=== PATIENT | female | born 1950 | race Caucasian/White ===

== ENCOUNTER 2020-04-06 13:04 | Inpatient (IN) ==
[2020-04-06] MEDS ORDERED: SODIUM CHLORIDE 0.9% 500 ML IV STA (13:45)
[2020-04-06 13:48] LABS: Basophils # 0.1 10*3/uL (0.0-0.2); Basophils % 0.6 % (0.0-0.8); Eosinophils # 0.1 10*3/uL (0.0-0.87); Eosinophils % 0.8 % (0.00-10.9); Hematocrit 33.2 VOL% (35.7-47.0); Hemoglobin 10.2 GM/DL (12.0-16.0); Immature Granulocytes % 0.5 %; Immature Granulocytes Absolute 0.07 #; Lymphocytes # 1.4 10*3/uL (1.4-4.0); Lymphocytes % 10.2 % (21.3-54.2); Mean Corpuscular HGB Conc 30.7 GM/DL (32-36); Mean Corpuscular Volume 90.5 FL (87-102); Mean Platelet Volume 9.2 FL (9.6-12.0); Monocytes % 6.5 % (1.7-12.7); Neutrophils % 81.4 % (38.7-73.9); Platelet Count 501 T/CUMM (130-400); Red Blood Count 3.67 MC/CUMM (3.8-5.5); White Blood Count 14.1 T/CUMM (4-12)
[2020-04-06 13:56] LABS: PT Patient Result 10.9 SECS (9.8-11.9)
[2020-04-06 14:18] LABS: Apearance,Urine CLOUDY (Clear); Bacteria,Urine Occasional /HPF (Few); Bilirubin,Urine Negative (Negative); Blood, Urine Negative (Negative); Glucose,Urine (UA) Negative (Negative); Ketones,Urine Negative (Negative); Nitrite,Urine Negative (Negative); Protein,Urine 30 MG/DL; Urine Color Yellow (Yellow); Urine Urobilinogen < 2.0 EU/DL (0.2-1.0); WBC,Urine 921 /HPF (0-6)
[2020-04-06 14:22] LABS: Alanine Aminotransferase 53 U/L (13-56); Albumin 2.7 G/DL (3.4-5.0); Alkaline Phosphatase 161 U/L (45-117); Aspartate Amino Transferase 71 U/L (0-37); Blood Urea Nitrogen 19 MG/DL (7-18); Calcium 8.6 MG/DL (8.5-10.1); Estimated Glom Filtration Rate 39 ML/MIN; Ferritin 365.1 ng/ml (8-252); Glucose 161 MG/DL (74-106); Total Protein 7.2 G/DL (6.4-8.3); Troponin I < 0.015 NG/ML (0.00-0.045)
[2020-04-06 14:35] LABS: Free T4 (Free Thyroxine) 1.34 NG/DL (0.76-1.46); Thyroid Stimulating Hormone 0.968 uIU/ml (0.358-3.74)
[2020-04-06] MEDS ORDERED: MEROPENEM 2,000 MG in SODIUM CHLORIDE 0.9% 100 ML IV ONE (14:35)
[2020-04-06] MEDS ORDERED: MEROPENEM 500 MG VIAL ONE (15:00)
[2020-04-06] MEDS ORDERED: SODIUM CHLORIDE 0.9% 1,700 ML IV ONE (15:19)
[2020-04-06 15:32] LABS: Barbiturates Screen,Urine Negative (Negative); Benzodiazepines Screen,Urine Negative (Negative); Cannabinoid Screen,Urine Negative (Negative); Opiate Screen,Urine Positive (Negative); Phencyclidine Screen,Urine Negative (Negative)
[2020-04-06] MEDS ORDERED: MAGNESIUM SULF RIDER 2 GM in PREMIX 1 EACH IV PRN ×2 (15:37→15:39)
[2020-04-06] MEDS ORDERED: GLUCAGON 1 MG VIAL IM PRN (15:37)
[2020-04-06] MEDS ORDERED: DEXTROSE 10% 250 ML BAG IV PRN (15:37)
[2020-04-06] MEDS ORDERED: MAGNESIUM SULF RIDER 4 GM in PREMIX 1 EACH IV PRN ×2 (15:37→15:39)
[2020-04-06] MEDS ORDERED: POTASSIUM CHLORIDE RIDER 10 MEQ in PREMIX 1 EACH IV PRN (15:39)
[2020-04-06] MEDS: INSULIN REGULAR 100 UNIT/ML SUBCUT SCH ×2 (16:36→21:05)
[2020-04-06 16:43] LABS: ABG Oxygen Saturation 94.9 % (95-100); ABG PCO2 46.6 MM HG (35-48); ABG PH 7.393 (7.35-7.45)
[2020-04-06] MEDS: HEPARIN 5,000 UNIT/1 ML VIAL SUBCUT SCH ×2 (17:03→23:56)
[2020-04-06] MEDS: SEVELAMER CARBONATE 800 MG TABLET PO SCH (19:01)
[2020-04-06] MEDS ORDERED: glipiZIDE 5 MG TABLET PO SCH (21:00)
[2020-04-06] MEDS ORDERED: MIDODRINE 5 MG TABLET PO SCH (21:00)
[2020-04-06] MEDS: buPROPion 75 MG TABLET PO SCH (21:02)
[2020-04-06] MEDS: DILTIAZEM 30 MG TABLET PO SCH (21:02)
[2020-04-06] MEDS: GABAPENTIN 300 MG CAPSULE PO SCH (21:03)
[2020-04-06] MEDS: MIDODRINE 5 MG TABLET PO SCH (21:03)
[2020-04-06] MEDS: MEROPENEM 500 MG in SODIUM CHLORIDE 0.9% 100 ML IV SCH (23:56)
[2020-04-07 05:18] LABS: Basophils % 0.5 % (0.0-0.8); Eosinophils # 0.2 10*3/uL (0.0-0.87); Eosinophils % 2.9 % (0.00-10.9); Hematocrit 29.1 VOL% (35.7-47.0); Hemoglobin 9.2 GM/DL (12.0-16.0); Immature Granulocytes % 0.4 %; Immature Granulocytes Absolute 0.03 #; Lymphocytes # 1.4 10*3/uL (1.4-4.0); Lymphocytes % 17.8 % (21.3-54.2); Mean Corpuscular HGB Conc 31.6 GM/DL (32-36); Mean Corpuscular Volume 89.5 FL (87-102); Mean Platelet Volume 9.4 FL (9.6-12.0); Monocytes % 7.4 % (1.7-12.7); Platelet Count 394 T/CUMM (130-400); Red Blood Count 3.25 MC/CUMM (3.8-5.5); Red Cell Distribution Width 14.8 % (9.3-17.3); White Blood Count 7.9 T/CUMM (4-12)
[2020-04-07 05:55] LABS: Albumin 2.2 G/DL (3.4-5.0); Bilirubin,Total 0.6 MG/DL (0.2-1.0); Calcium 8.2 MG/DL (8.5-10.1); Osmolality,Calculated 273.7 MOS/KG (273-304); Total Protein 6.3 G/DL (6.4-8.3)
[2020-04-07] MEDS: MEROPENEM 500 MG in SODIUM CHLORIDE 0.9% 100 ML IV SCH (07:26)
[2020-04-07] MEDS: SEVELAMER CARBONATE 800 MG TABLET PO SCH ×3 (08:56→16:47)
[2020-04-07] MEDS: PANTOPRAZOLE 40 MG TABLET PO SCH (08:56)
[2020-04-07] MEDS: SERTRALINE 50 MG TABLET PO SCH (08:56)
[2020-04-07] MEDS: MIDODRINE 5 MG TABLET PO SCH ×2 (08:57→15:39)
[2020-04-07] MEDS: GABAPENTIN 300 MG CAPSULE PO SCH ×2 (08:57→21:44)
[2020-04-07] MEDS: DILTIAZEM 30 MG TABLET PO SCH (08:57)
[2020-04-07] MEDS: buPROPion 75 MG TABLET PO SCH ×2 (08:58→21:46)
[2020-04-07] MEDS: ATORVASTATIN 10 MG TABLET PO SCH (08:58)
[2020-04-07] MEDS: LEVOTHYROXINE 75 MCG TABLET PO SCH (08:58)
[2020-04-07] MEDS: HEPARIN 5,000 UNIT/1 ML VIAL SUBCUT SCH ×2 (09:08→15:39)
[2020-04-07] MEDS: INSULIN REGULAR 100 UNIT/ML SUBCUT SCH ×3 (09:20→16:48)
[2020-04-07] MEDS ORDERED: cefTRIAXone 1,000 MG in SYRINGE 1 EACH IV SCH (14:00)
[2020-04-07] MEDS: MULTIVITAMIN (BEROCCA) TABLET PO SCH (15:39)
[2020-04-07] MEDS: FLUDROCORTISONE 0.1 MG TABLET PO SCH ×2 (15:39→21:45)
[2020-04-07] MEDS: POLYETHYLENE GLYCOL POWDER 17 GM PACK PO SCH (15:39)
[2020-04-07] MEDS: DOCUSATE SODIUM 100 MG CAPSULE PO SCH (21:46)
[2020-04-08] MEDS: HEPARIN 5,000 UNIT/1 ML VIAL SUBCUT SCH ×2 (00:30→10:16)
[2020-04-08] MEDS: INSULIN REGULAR 100 UNIT/ML SUBCUT SCH ×3 (00:30→12:43)
[2020-04-08 03:05] LABS: Basophils # 0.1 10*3/uL (0.0-0.2); Basophils % 0.8 % (0.0-0.8); Eosinophils # 0.3 10*3/uL (0.0-0.87); Hematocrit 28.8 VOL% (35.7-47.0); Hemoglobin 8.9 GM/DL (12.0-16.0); Immature Granulocytes % 0.4 %; Immature Granulocytes Absolute 0.03 #; Lymphocytes % 26.1 % (21.3-54.2); Mean Corpuscular HGB Conc 30.9 GM/DL (32-36); Mean Corpuscular Volume 89.7 FL (87-102); Mean Platelet Volume 9.8 FL (9.6-12.0); Monocytes % 10.3 % (1.7-12.7); Neutrophils % 58.4 % (38.7-73.9); Platelet Count 420 T/CUMM (130-400); Red Blood Count 3.21 MC/CUMM (3.8-5.5); Red Cell Distribution Width 14.9 % (9.3-17.3); White Blood Count 7.5 T/CUMM (4-12)
[2020-04-08 03:20] LABS: Alanine Aminotransferase 37 U/L (13-56); Albumin 2.3 G/DL (3.4-5.0); Alkaline Phosphatase 134 U/L (45-117); Aspartate Amino Transferase 29 U/L (0-37); Bilirubin,Total < 0.39 MG/DL (0.2-1.0); Blood Urea Nitrogen 9 MG/DL (7-18); Calcium 8.3 MG/DL (8.5-10.1); Estimated Glom Filtration Rate 71 ML/MIN; Glucose 98 MG/DL (74-106); Osmolality,Calculated 275.5 MOS/KG (273-304); Total Protein 6.3 G/DL (6.4-8.3)
[2020-04-08 03:23] LABS: Risk Ratio 2.08; VLDL CHOLESTEROL 20.2 MG/DL
[2020-04-08] MEDS: MIDODRINE 5 MG TABLET PO SCH (08:09)
[2020-04-08] MEDS ORDERED: CHOLECALCIFEROL 1,000 UNIT TABLET PO SCH (09:00)
[2020-04-08] MEDS ORDERED: MIDODRINE 5 MG TABLET PO SCH (09:00)
[2020-04-08] MEDS: LEVOTHYROXINE 75 MCG TABLET PO SCH (10:15)
[2020-04-08] MEDS: buPROPion 75 MG TABLET PO SCH (10:15)
[2020-04-08] MEDS: ATORVASTATIN 10 MG TABLET PO SCH (10:15)
[2020-04-08] MEDS: GABAPENTIN 300 MG CAPSULE PO SCH (10:15)
[2020-04-08] MEDS: DOCUSATE SODIUM 100 MG CAPSULE PO SCH (10:15)
[2020-04-08] MEDS: SERTRALINE 50 MG TABLET PO SCH (10:16)
[2020-04-08] MEDS: FLUDROCORTISONE 0.1 MG TABLET PO SCH (10:16)
[2020-04-08] MEDS: SEVELAMER CARBONATE 800 MG TABLET PO SCH ×2 (10:16→12:44)
[2020-04-08] MEDS: PANTOPRAZOLE 40 MG TABLET PO SCH (10:16)
[2020-04-08] MEDS: MULTIVITAMIN (BEROCCA) TABLET PO SCH (10:16)
[2020-04-08] MEDS: POLYETHYLENE GLYCOL POWDER 17 GM PACK PO SCH (10:17)
[2020-04-08 11:52] VITALS: BP 114/63
== END 2020-04-08 13:52 | disposition home health service (06) | DRG 312 ==
LOC: N.ED 13:04 → N.EDINP 16:46 → N.4E 17:38
PROVIDERS: ADMIT Hospitalist; ATTEND Hospitalist

== ENCOUNTER 2021-01-12 16:48 | Observation (INO) ==
[2021-01-12] MEDS ORDERED: SODIUM CHLORIDE 0.9% 1,000 ML IV STA (17:24)
[2021-01-12 18:07] LABS: Basophils % 0.3 % (0.0-0.8); Eosinophils % 0.3 % (0.00-10.9); Hematocrit 34.2 VOL% (35.7-47.0); Hemoglobin 11.4 GM/DL (12.0-16.0); Immature Granulocytes % 0.3 %; Immature Granulocytes Absolute 0.02 #; Lymphocytes # 1.8 10*3/uL (1.4-4.0); Lymphocytes % 30.5 % (21.3-54.2); Mean Corpuscular HGB Conc 33.3 GM/DL (32-36); Mean Corpuscular Volume 91.4 FL (87-102); Mean Platelet Volume 9.7 FL (9.6-12.0); Monocytes % 11.6 % (1.7-12.7); Platelet Count 359 T/CUMM (130-400); Red Blood Count 3.74 MC/CUMM (3.8-5.5); Red Cell Distribution Width 14.1 % (9.3-17.3); White Blood Count 5.8 T/CUMM (4-12)
[2021-01-12 18:35] LABS: Bilirubin,Total 0.5 MG/DL (0.2-1.0); Calcium 9.4 MG/DL (8.5-10.1); Potassium 3.7 MMOL/L (3.5-5.1); Thyroid Stimulating Hormone 0.094 uIU/ml (0.358-3.74); Total Protein 7.8 G/DL (6.4-8.2)
[2021-01-12 19:07] LABS: Bacteria,Urine Occasional /HPF (Few); Bilirubin,Urine Negative (Negative); Blood, Urine Negative (Negative); Glucose,Urine (UA) >=500 mg/dL (Negative); Hyaline Casts,Urine 7 /LPF (0-3); Ketones,Urine 20 mg/dL (Negative); Mucus,Urine Occasional /LPF (Occasional); Nitrite,Urine Negative (Negative); Protein,Urine Negative; RBC,Urine 6 /HPF (0-4); Squamous Epithelial Cell,Urine Few /HPF (0-10); Urine Appearance Slightly Hazy (Clear); Urine Color Yellow (Yellow); Urine Specific Gravity 1.026 (1.001-1.035); Urine Urobilinogen < 2.0 EU/DL (0.2-1.0); WBC,Urine 17 /HPF (0-6)
[2021-01-12] MEDS ORDERED: ONDANSETRON 4 MG/2 ML VIAL IV PRN (19:48)
[2021-01-12] MEDS ORDERED: ACETAMINOPHEN 325 MG TABLET PO PRN (19:48)
[2021-01-12] MEDS ORDERED: BENZONATATE 100 MG CAPSULE PO PRN (19:52)
[2021-01-12] MEDS: DEXTROSE 5% NACL 0.9% 1,000 ML IV SCH (20:32)
[2021-01-12] MEDS: ENOXAPARIN 40 MG/0.4 ML SYRINGE SUBCUT SCH (22:23)
[2021-01-12] MEDS: BISACODYL 5 MG TABLET PO SCH (22:24)
[2021-01-12] MEDS: MIDODRINE 5 MG TABLET PO SCH (22:24)
[2021-01-12] MEDS: GABAPENTIN 300 MG CAPSULE PO SCH (22:24)
[2021-01-13 05:45] LABS: Basophils % 0.5 % (0.0-0.8); Eosinophils # 0.1 10*3/uL (0.0-0.87); Eosinophils % 1.4 % (0.00-10.9); Hematocrit 29.2 VOL% (35.7-47.0); Hemoglobin 9.5 GM/DL (12.0-16.0); Immature Granulocytes % 0.5 %; Immature Granulocytes Absolute 0.02 #; Lymphocytes # 1.2 10*3/uL (1.4-4.0); Mean Corpuscular HGB Conc 32.5 GM/DL (32-36); Mean Corpuscular Volume 94.2 FL (87-102); Mean Platelet Volume 9.8 FL (9.6-12.0); Neutrophils % 59.6 % (38.7-73.9); Platelet Count 285 T/CUMM (130-400); Red Cell Distribution Width 14.5 % (9.3-17.3); White Blood Count 4.3 T/CUMM (4-12)
[2021-01-13 06:03] LABS: Osmolality,Calculated 283.5 MOS/KG (273-304); Potassium 3.2 MMOL/L (3.5-5.1)
[2021-01-13] MEDS ORDERED: POTASSIUM CHLORIDE 20 MEQ/15 ML UDCUP PO ONE (06:45)
[2021-01-13] MEDS: PANTOPRAZOLE 40 MG TABLET PO SCH (09:30)
[2021-01-13] MEDS: ASPIRIN EC 81 MG TABLET PO SCH (09:30)
[2021-01-13] MEDS: MIDODRINE 5 MG TABLET PO SCH ×3 (09:30→20:49)
[2021-01-13] MEDS: ATORVASTATIN 10 MG TABLET PO SCH (09:30)
[2021-01-13] MEDS: SERTRALINE 50 MG TABLET PO SCH (09:30)
[2021-01-13] MEDS: GABAPENTIN 300 MG CAPSULE PO SCH ×2 (09:30→20:49)
[2021-01-13] MEDS: LEVOTHYROXINE 50 MCG TABLET PO SCH (09:30)
[2021-01-13] MEDS: VITAMIN E 400 UNIT CAPSULE PO SCH (09:30)
[2021-01-13] MEDS: DEXTROSE 5% NACL 0.9% 1,000 ML IV SCH ×2 (14:52→21:52)
[2021-01-13] MEDS: BISACODYL 5 MG TABLET PO SCH (20:49)
[2021-01-13] MEDS: ENOXAPARIN 40 MG/0.4 ML SYRINGE SUBCUT SCH (20:53)
[2021-01-14] MEDS: DEXTROSE 5% NACL 0.9% 1,000 ML IV SCH (05:52)
[2021-01-14 07:31] LABS: Albumin 2.8 G/DL (3.4-5.0); Bilirubin,Total 1.1 MG/DL (0.2-1.0); Calcium 7.7 MG/DL (8.5-10.1); Osmolality,Calculated 283.3 MOS/KG (273-304); Potassium 3.3 MMOL/L (3.5-5.1); Total Protein 5.8 G/DL (6.4-8.2)
[2021-01-14] MEDS: SERTRALINE 50 MG TABLET PO SCH (09:55)
[2021-01-14] MEDS: LEVOTHYROXINE 50 MCG TABLET PO SCH (09:55)
[2021-01-14] MEDS: MIDODRINE 5 MG TABLET PO SCH (09:55)
[2021-01-14] MEDS: PANTOPRAZOLE 40 MG TABLET PO SCH (09:55)
[2021-01-14] MEDS: GABAPENTIN 300 MG CAPSULE PO SCH (09:55)
[2021-01-14] MEDS: ASPIRIN EC 81 MG TABLET PO SCH (09:56)
[2021-01-14] MEDS: ATORVASTATIN 10 MG TABLET PO SCH (09:59)
[2021-01-14] MEDS: VITAMIN E 400 UNIT CAPSULE PO SCH (09:59)
[2021-01-14 14:35] VITALS: BP 98/56
== END 2021-01-14 13:28 | disposition home or self-care (01) ==
LOC: N.ED 16:48 → N.EDINP 16:48 → N.TELES 20:53
PROVIDERS: ADMIT Internal Medicine; ATTEND Internal Medicine

== ENCOUNTER 2021-02-11 10:28 | Inpatient (IN) ==
[2021-02-11] MEDS ORDERED: SODIUM CHLORIDE 0.9% 500 ML IV STA (10:52)
[2021-02-11] MEDS ORDERED: ONDANSETRON 4 MG/2 ML VIAL IV STA (11:09)
[2021-02-11 11:15] LABS: Bilirubin,Urine Negative (Negative); Blood, Urine Negative (Negative); Glucose,Urine (UA) >=500 mg/dL (Negative); Ketones,Urine Negative (Negative); Nitrite,Urine Negative (Negative); Protein,Urine Negative; Squamous Epithelial Cell,Urine Occasional /HPF (0-10); Urine Appearance CLEAR (Clear); Urine Color Straw (Yellow); Urine Specific Gravity 1.013 (1.001-1.035); Urine Urobilinogen < 2.0 EU/DL (0.2-1.0)
[2021-02-11 11:19] LABS: Basophils % 0.3 % (0.0-0.8); Eosinophils # 0.1 10*3/uL (0.0-0.87); Eosinophils % 0.4 % (0.00-10.9); Hematocrit 37.7 VOL% (35.7-47.0); Hemoglobin 12.3 GM/DL (12.0-16.0); Immature Granulocytes % 0.3 %; Immature Granulocytes Absolute 0.04 #; Lymphocytes # 0.8 10*3/uL (1.4-4.0); Lymphocytes % 6.7 % (21.3-54.2); Mean Corpuscular HGB Conc 32.6 GM/DL (32-36); Mean Platelet Volume 9.9 FL (9.6-12.0); Monocytes % 7.1 % (1.7-12.7); Neutrophils % 85.2 % (38.7-73.9); Platelet Count 258 T/CUMM (130-400); Red Blood Count 4.01 MC/CUMM (3.8-5.5); Red Cell Distribution Width 14.7 % (9.3-17.3); White Blood Count 11.7 T/CUMM (4-12)
[2021-02-11 11:56] LABS: PT Patient Result 10.9 SECS (9.8-11.9); Partial Thromboplastin Time 25.4 SECS (23.9-33.8)
[2021-02-11 11:57] LABS: Albumin 3.9 G/DL (3.4-5.0); Bilirubin,Total 0.6 MG/DL (0.2-1.0); Calcium 9.1 MG/DL (8.5-10.1); Osmolality,Calculated 277.5 MOS/KG (273-304); Potassium 3.7 MMOL/L (3.5-5.1); Total Protein 7.6 G/DL (6.4-8.2)
[2021-02-11] MEDS ORDERED: methylPREDNISolone SOD SUC 125 MG/2 ML VIAL IV STA (13:23)
[2021-02-11] MEDS ORDERED: LEVOFLOXACIN 500 MG TABLET PO STA (13:23)
[2021-02-11] MEDS ORDERED: DEXTROSE 50% 25 GM/50 ML VIAL IV PRN (14:12)
[2021-02-11] MEDS ORDERED: DOCUSATE SODIUM 100 MG CAPSULE PO PRN (14:12)
[2021-02-11] MEDS ORDERED: ONDANSETRON 4 MG/2 ML VIAL IV PRN (14:12)
[2021-02-11] MEDS ORDERED: GLUCAGON 1 MG VIAL IM PRN (14:12)
[2021-02-11] MEDS: ALBUTEROL/IPRATROPIUM 3 ML NEB RESP TX SCH ×2 (14:45→19:28)
[2021-02-11] MEDS: PIPERACILLIN/TAZOBACTAM 3,375 MG in SODIUM CHLORIDE 0.9% 100 ML IV SCH ×2 (15:17→21:44)
[2021-02-11] MEDS: ENOXAPARIN 40 MG/0.4 ML SYRINGE SUBCUT SCH (15:17)
[2021-02-11] MEDS: INSULIN LISPRO 100 UNIT/ML SUBCUT SCH ×2 (18:07→21:08)
[2021-02-11] MEDS: SENNA 8.6 MG TABLET PO SCH (21:08)
[2021-02-11] MEDS: GABAPENTIN 300 MG CAPSULE PO SCH ×2 (21:08→21:13)
[2021-02-11] MEDS: DILTIAZEM 30 MG TABLET PO SCH (21:08)
[2021-02-11] MEDS: MIDODRINE 5 MG TABLET PO SCH (21:08)
[2021-02-12] MEDS: ALBUTEROL/IPRATROPIUM 3 ML NEB RESP TX SCH ×6 (01:01→23:00)
[2021-02-12 05:24] LABS: Basophils % 0.1 % (0.0-0.8); Hematocrit 33.8 VOL% (35.7-47.0); Hemoglobin 11.1 GM/DL (12.0-16.0); Immature Granulocytes % 0.5 %; Immature Granulocytes Absolute 0.04 #; Lymphocytes # 0.7 10*3/uL (1.4-4.0); Lymphocytes % 8.9 % (21.3-54.2); Mean Corpuscular HGB Conc 32.8 GM/DL (32-36); Mean Corpuscular Volume 92.6 FL (87-102); Mean Platelet Volume 9.9 FL (9.6-12.0); Monocytes % 6.3 % (1.7-12.7); Neutrophils % 84.2 % (38.7-73.9); Platelet Count 238 T/CUMM (130-400); Red Blood Count 3.65 MC/CUMM (3.8-5.5); White Blood Count 7.8 T/CUMM (4-12)
[2021-02-12] MEDS: PIPERACILLIN/TAZOBACTAM 3,375 MG in SODIUM CHLORIDE 0.9% 100 ML IV SCH ×3 (05:45→22:04)
[2021-02-12] MEDS: LEVOTHYROXINE 75 MCG TABLET PO SCH (05:45)
[2021-02-12 06:05] LABS: Osmolality,Calculated 282.4 MOS/KG (273-304)
[2021-02-12] MEDS: INSULIN LISPRO 100 UNIT/ML SUBCUT SCH ×4 (08:06→20:47)
[2021-02-12] MEDS: PANTOPRAZOLE 40 MG TABLET PO SCH (08:34)
[2021-02-12] MEDS: ASPIRIN EC 81 MG TABLET PO SCH (08:34)
[2021-02-12] MEDS: MIDODRINE 5 MG TABLET PO SCH ×3 (08:34→20:46)
[2021-02-12] MEDS: ATORVASTATIN 10 MG TABLET PO SCH (08:34)
[2021-02-12] MEDS: GABAPENTIN 300 MG CAPSULE PO SCH ×2 (08:34→20:46)
[2021-02-12] MEDS: DILTIAZEM 30 MG TABLET PO SCH ×2 (08:34→20:46)
[2021-02-12] MEDS: SERTRALINE 50 MG TABLET PO SCH (08:34)
[2021-02-12] MEDS: ENOXAPARIN 40 MG/0.4 ML SYRINGE SUBCUT SCH (14:18)
[2021-02-12] MEDS: SENNA 8.6 MG TABLET PO SCH (20:46)
[2021-02-13] MEDS: LEVOTHYROXINE 75 MCG TABLET PO SCH (06:05)
[2021-02-13] MEDS: PIPERACILLIN/TAZOBACTAM 3,375 MG in SODIUM CHLORIDE 0.9% 100 ML IV SCH (06:06)
[2021-02-13] MEDS: INSULIN LISPRO 100 UNIT/ML SUBCUT SCH ×2 (08:20→11:03)
[2021-02-13 08:27] VITALS: BP 109/56
[2021-02-13] MEDS: PANTOPRAZOLE 40 MG TABLET PO SCH (09:15)
[2021-02-13] MEDS: SERTRALINE 50 MG TABLET PO SCH (09:15)
[2021-02-13] MEDS: ASPIRIN EC 81 MG TABLET PO SCH (09:15)
[2021-02-13] MEDS: DILTIAZEM 30 MG TABLET PO SCH (09:15)
[2021-02-13] MEDS: MIDODRINE 5 MG TABLET PO SCH (09:15)
[2021-02-13] MEDS: ATORVASTATIN 10 MG TABLET PO SCH (09:15)
[2021-02-13] MEDS: GABAPENTIN 300 MG CAPSULE PO SCH (09:16)
[2021-02-13] MEDS: ALBUTEROL/IPRATROPIUM 3 ML NEB RESP TX SCH (10:13)
== END 2021-02-13 11:55 | disposition home health service (06) | DRG 179 ==
LOC: N.ED 10:28 → N.EDINP 14:12 → SUATTDRO 14:12 → N.EDINP 17:20 → N.TELEN 17:58
PROVIDERS: ADMIT Internal Medicine; ATTEND Hospitalist